=== PATIENT | male | born 1995 | race Caucasian/White ===

== ENCOUNTER 2024-08-05 14:44 | Emergency (ER) | payer OTHER, SELFPAY ==
[2024-08-05 14:52] VITALS: BP 130/84; PULSE 74; RESP 20; TEMP 36.9; O2SAT 100
[2024-08-05 15:24] LABS: EDCOVIDSCREEN Negative (Negative); EDINFLUASCREEN Negative (Negative); EDINFLUBSCREEN Negative (Negative)
--- NOTE | 2024-08-05 15:31 | ED_ITS ---
HPI - URI/Sore Throat General Chief Complaint: Upper Respiratory Infection Stated Complaint: Cough Time Seen by Provider: 08/05/24 15:31 Source: patient Mode of arrival: ambulatory Limitations: no limitations History of Present Illness HPI Narrative: 28-year-old male presents with complaint of cough, chest congestion for the past 1 week. Reports shortness of breath with exertion, worsening of cough for 2-3 days. Afebrile. Reports coughing up brown and green sputum. Taking [id number] Mucinex without relief of cough. Cough is worse at night and with activity. All systems reviewed and negative except as noted above. Related Data Home Medications ?Medication ?Instructions ?Recorded ?Confirmed ?Last Taken ?Type hydroxyzine HCl 50 mg tablet mg 08/05/24 Unknown History Allergies Allergy/AdvReac Type Severity Reaction Status Date / Time No Known Allergies Allergy Verified 08/05/24 15:01 Review of Systems Review of Systems: CONSTITUTIONAL: Denies fever, chills, or sweats. EYES: Denies visual changes, redness, or discharge. ENT: Denies rhinorrhea, congestion, sore throat, or otalgia. CARDIOVASCULAR: Denies chest pain, palpitations, or edema. RESPIRATORY: Reports cough , chest congestion, dyspnea with exertion. GASTROINTESTINAL: Denies abdominal pain, nausea, vomiting, or diarrhea. GENITOURINARY: Denies dysuria or hematuria. SKIN: Denies rash or itching. MUSCULOSKELETAL: Denies back pain, joint pain, or myalgia. NEUROLOGIC: Denies headache, numbness, or weakness. PSYCHIATRIC: Denies anxiety or depression. All other systems reviewed are negative, except as documented in HPI. PMFSH Social History Social History Smoking status: Never smoker Alcohol intake: never Comments At time of signature, agree with nursing past medical, surgical, social and family history. There is no relevant family history pertinent to the presenting complaint. Exam Narrative: GENERAL: This is a well-nourished, well-developed patient, in no apparent distress. HEAD: normocephalic, atraumatic. EYES: PERRL. Sclera clear/white. Vision is grossly intact. EARS: External ears normal, auditory canals clear and without drainage, TMs normal without perforation. Hearing grossly intact. NOSE: External nose normal with no obvious nasal discharge, nares without redness, no rhinorrhea. THROAT: Mucous membranes moist, posterior pharynx clear. NECK: Neck supple, non-tender without lymphadenopathy, masses or thyromegaly. CARDIOVASCULAR: Regular rate and rhythm without murmurs, gallops, or rubs. RESPIRATORY: decreased to bilateral lower lung [place] otherwise clear. Breath sounds equal bilaterally. No wheezes, rales, or rhonchi. SKIN: warm, Dry, intact with no suspicious lesions or rash, good texture and turgor. NEURO: awake, alert, and oriented to person, place and time. There were no obvious focal neurologic abnormalities. EXTREMITIES: No joint tenderness, effusion, or edema noted. Course Course Level of Care: Express Care Visit Vital Signs Vital signs: Vital Signs Temperature 36.9 C 08/05/24 14:52 Pulse Rate 74 08/05/24 14:52 Respiratory Rate 20 08/05/24 14:52 Blood Pressure 130/84 08/05/24 14:52 Pulse Oximetry 100 08/05/24 14:52 Oxygen Delivery Room Air 08/05/24 14:52 Temperature 36.9 C 08/05/24 14:52 Pulse Rate 74 08/05/24 14:52 Respiratory Rate 20 08/05/24 14:52 Blood Pressure 130/84 08/05/24 14:52 Pulse Oximetry 100 08/05/24 14:52 Oxygen Delivery Room Air 08/05/24 14:52 Reviewed MDM - URI/Sore Throat MDM Narrative Medical decision making narrative: negative COVID and influenza test. Will treat patient with antibiotic due to duration of symptoms, exam findings. Patient agrees with plan of care. Patient is alert, nontoxic. Patient is aware of diagnosis, understands and agrees to treatment plan. Ant icipatory guidance given. Patient agrees to follow-up as directed and is aware of reasons to seek care at the emergency department. Portions of this record may have been created with voice recognition software Differential Diagnosis Differential diagnosis: Likely upper respiratory infection, sinusitis, viral infection, bronchitis and influenza Lab Data Labs: Lab Results 08/05/24 Range/Units 15:22 POC Influenza A Ag Negative (Negative) POC Influenza B Ag Negative (Negative) POC SARS CoV-2 Ag Negative (Negative) Discharge Plan Discharge Clinical Impression: Acute bronchitis Qualifiers: Bronchitis organism: unspecified organism Qualified Code(s): J20.9 - Acute bronchitis, unspecified Patient Disposition: Home, Self-Care Condition: Stable Instructions: Antibiotic Form, Acute Bronchitis (ED) Additional Instructions: your COVID and influenza test was negative today. Take medications as prescribed. Continue taking [id number] Mucinex as directed on packaging. Drink at least 64 oz of water a day. Place cool mist humidifier in bedroom where you sleep. Follow-up with your primary care physician if symptoms are not improving. Patient Language: Chinese Prescriptions: New benzonatate 200 mg capsule 200 mg PO TID PRN (Reason: cough) Qty: 20 0RF methylprednisolone [Medrol (Saleem)] 4 mg tablets,dose pack See Rx Instructions PO .COMPLEX Qty: 21 0RF Rx Instructions: orally per package directions doxycycline hyclate 100 mg capsule 100 mg PO BID 7 Days Qty: 14 0RF No Action hydroxyzine HCl 50 mg tablet Follow-up/Referrals: UNKNOWN,DOCTOR [Primary Care Provider] - Time of Disposition: 15:37
--- OUTSIDE RECORDS SUMMARY | 2024-08-05 15:39 | XMS_ITS | Referral Summary ---
Author Organization [facility] Address [address] [place] [address] Care Team Providers Care Editorial Director Name Role Phone Gerson Posey MD Primary Care Provider [phone] Encounters Date Type Department Care Team Description 06/11/2024 Telephone [facility] [address] [address] Kyara Hayden NP from Last 3 Months Allergies No known active allergies Medications hydrOXYzine (ATARAX) 50 mg tabletIndicatio ns:Insomnia Take 1 tablet (50 mg total) by mouth 2 (two) times a day as needed for itching 30 tablet 5 08/08/19 25 Active traZODone (DESYREL) 50 mg tabletIndicatio ns:Primary insomnia Take 1 tablet (50 mg total) by mouth nightly as needed for sleep 90 tablet 5 08/10/19 25 Active traZODone (DESYREL) 50 mg tabletIndicatio ns:Primary insomnia Take 1 tablet (50 mg total) by mouth nightly as needed for sleep 90 tablet 4 07/11/19 25 Discontinu ed(Reorder ) hydrOXYzine (ATARAX) 50 mg tabletIndicatio ns:Insomnia Take 1 tablet (50 mg total) by mouth 2 (two) times a day as needed for itching 30 tablet 12/02/07/09/19 25 Discontinu ed(Reorder ) Active Problems Problem Noted Date Diagnosed Date Primary insomnia 04/15/2024 Assessment & Plan (04/15/2024 2:41 PM CDT): Chronic, not well controlled Has had trouble with insomnia for approx 3-4 years Rotates between 3 OTC sleep aids; currently using Unisom Sometimes OTC helps fall asleep but unable to stay asleep Trazodone 50 mg nightly as needed Follow up 3 months Immunizations Name Administration Dates Next Due HPV, Quadrivalent 04/03/2012,02/01/2012 Influenza, Quadrivalent, Spl it, Preservative Free, Intramuscular 03/29/2018 Influenza, Unspecified 04/15/2024(Deferr ed: Patient Refused),04/02/2023(Deferred: Patient Refused),09/27/2021(Deferred: Patient Refused),09/27/2021(Deferred: Patient Refused),07/15/2020(Deferred: Patient Refused),07/03/2020(Deferred: Patient Refused),07/03/2020(Deferred: Patient Refused),07/03/2019(Deferred: Patient Refused) Meningococcal MCV4P (Menactra) 02/01/2012 Tdap 10/27/2021,03/29/2018 Social History Tobacco Use Types Packs/Day Years Used Date Smoking Tobacco: Some Days Cigarettes Smokeless Tobacco: Current Chew Tobacco Cessation:Ready to Q uit: Yes; Counseling Given: Yes Comments:maybe once per week Alcohol Use Standard Drinks/Week Comments Yes 12 (1 standard drink = 0.6 oz pu re alcohol) PHQ-2 Answer Date Recorded PHQ-2 Total Score (If total score is 3 or more points, staff should administer the PHQ-9) 0 04/15/2024 Sex and Gender Information Value Date Recorded Sex Assigned at Not on file 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 Gender Identity Not on file Sexual Orientation Not on file Last Filed Vital Signs Vital Sign Reading Time Taken Comments Blood Pressure 106/70 04/15/2024 1:56 PM CDT Pulse 59 04/15/2024 1:56 PM CDT Temperature 36.6 ??C (97.8 ??F) 04/15/2024 1:56 PM CD T Respiratory Rate 16 04/15/2024 1:56 PM CDT Oxygen Saturation 99% 04/15/2024 1:56 PM CDT Inhaled Oxygen Concentration - - Weight 76.5 kg (168 lb 11.2 oz) 04/15/2024 1:56 PM CDT Height 167.6 cm (5' 6 ) 04/15/2024 1:56 PM CDT Body Mass Index 27.23 04/15/2024 1:56 PM CDT Plan of Treatment Not on file Procedures Procedure Name Priority Date/Time Associated Diagnosis Comments HEPATITIS C ANTIBODY Routine 04/12/2024 9:26 AM CDT Encounter for hepatitis C screening test for low risk patient from Last 3 Months or Most Recently Relevant to Health Maintenance Results * Hepatitis C antibody Blood (04/12/2024 9:26 AM CDT) Hep C Ab Nonreactive Nonreactive Comment: Interpretive Data Nonreactive: Antibodies to HCV not detected. Does NOT exclude the possibility of recent exposure to HCV. Equivocal: Equivocal for HCV antibodies. Supplemental molecular testing will be automatically performed to determine infection status in accordance with current CDC screening recommendations. ?? Reactive: Positive for HCV antibodies. ??This may represent current or past HCV infection. Supplemental molecular testing will be automatically performed to determine ??current infection status in accordance with current CDC screening recommendations. Interpretive data was last revised on 2019. Testing performed by: [facility], [address] [place] [address]., [id number] Blood 04/12/2024 9:26 AM CDT 04/12/2024 11:53 AM CDT us Kyara Hayden NP LAB MICROBIOLOGY - GENERAL ORDER ERVIN Final Result [facility] [address] [facility] [place] [address] from Last 3 Months or Most Recently Relevant to Health Maintenance Insurance [employer]UE [employer] BLUE ACCESS [employer]OS [facility] CHOICE PLUS Care Teams Editorial Director Relationship Specialty Start Date End Date Gerson Posey MD [address] [place] [address] PCP - General Family Medicine 07/15/20
--- OUTSIDE RECORDS SUMMARY | 2024-08-05 15:40 | XMS_ITS | Clinical Summary ---
Author Organization [facility] Address [address] [place] [address] Care Team Providers Care Software Installer Name Role Phone Gerson Posey MD Primary Care Provider [phone] Allergies No known active allergies Medications hydrOXYzine [...] day as needed for itching 30 tablet 4 07/09/19 25 Discontinu ed(Reorder ) Active Problems Problem Noted Date Diagnosed Date Primary insomnia 04/15/2024 Assessment & Plan (04/15/2024 2:41 PM CDT): Chronic, not well controlled Has had trouble with insomnia for approx 3-4 years Rotates between 3 OTC sleep aids; currently using Unisom Sometimes OTC helps fall asleep but unable to stay asleep Trazodone 50 mg nightly as needed Follow up 3 months Encounters Date Type Department Care Team Description 06/11/2024 [facility]phone [facility] [address] [place] [address] Kyara Hayden NP from Last 3 Months Immunizations Name Administration Dates Next Due HPV, Quadrivalent 04/03/2012,02/01/2012 Influenza, Quadrivalent, Spl it, Preservative Free, Intramuscular 03/29/2018 Influenza, Unspecified 04/15/2024(Deferr ed: Patient Refused),04/02/2023(Deferred: Patient Refused),09/27/2021(Deferred: Patient Refused),09/27/2021(Deferred: Patient Refused),07/15/2020(Deferred: Patient Refused),07/03/2020(Deferred: Patient Refused),07/03/2020(Deferred: Patient Refused),07/03/2019(Deferred: Patient Refused) Meningococcal MCV4P (Menactra) 02/01/2012 Tdap 10/27/2021,03/29/2018 Surgical History Surgery Date Site/Laterality Comments SINUS SURGERY 07/03/1999 - 07/02/2000 FRACTURE SURGERY 07/03/2009 - 07/02/2010 Left left arm, compound fracture x2 Medical History Medical History Date Comments Renal disorder kidney stones Family History Relation Name Status Comments Father Alive Mother Alive Social History Tobacco Use Types Packs/Day Years [...] on file Legal 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 Gender Identity Not on file Sexual Orientation Not on file Obstetrics History Last Filed Vital Signs Vital Sign Reading [...] 04/15/2024 1:56 PM CDT Plan of Treatment Health Maintenance Due Date Last Done Comments Pneumococcal vaccine <65 (1 of 2 - PCV) 2000 Varicella Vaccines (1 of 2 - 13+ 2-dose series) 2007 HPV Vaccines (3 - Male 3-dos e series) 08/03/2012 04/03/2012, 02/01/2012 Influenza Vaccine (#1) 2024 03/29/2018 Postp oned from 03/03/2024 (Patient declined, but will receive in the future) Depression Screening 04/15/2025 04/15/2024, 09/27/2021, 07/15/2020 Regular Well Visit/Exam 18-64 04/15/2025, 07/15/2020 DTaP/Tdap/Td Vaccine (3 - Td or Tdap) 10/28/2031 10/27/2021, 03/29/2018 Hepatitis B Screening Completed 04/12/2024 Hepatitis C Screening Completed 04/12/2024 Procedures Procedure Name Priority Date/Time Associated Diagnosis [...] last revised on 2019. Testing performed by: [facility], [address] [place] [address]., [id number] Blood 04/12/2024 9:26 AM CDT 04/12/2024 11:53 AM CDT us Kyara Hayden NP LAB MICROBIOLOGY - GENERAL ORDER ERVIN Final Result [facility] 1 [facility] Department [place] [address] from Last 3 Months or Most Recently Relevant to Health Maintenance Insurance [employer] BLUE ACCESS OOS [facility] CHOICE PLUS Care Teams Software Installer Relationship Specialty Start Date End Date Gerson Posey MD [address] [place] [address] PCP - General Family Medicine 07/15/20
--- OUTSIDE RECORDS SUMMARY | 2024-08-05 15:40 | XMS_ITS | Clinical Summary ---
Author Organization [facility] Address [address] [place] [address] Phone Care Team Providers Care Supply Chain Assistant Name Role Phone Provider, None Primary Care Provider Unavailabl e Allergies No known active allergies Medications Ibuprofen (ADVIL) 200 MG Capsule Take 600 mg by mouth. Alternating with Hydrocodone as needed. Active HYDROcodone-candy taminophen (NORCO) 5-325 MG Tablet Take 1 Tab by mouth every 4 hours as needed. 0 8 Active ondansetron (ZOFRAN) 4 MG Tablet TAKE 1 TABLET(S) EVERY 6-8 HOURS BY ORAL ROUTE NEEDED FOR 10 DAYS. 0 8 Active tamsulosin (FLOMAX) 0.4 MG Capsule TAKE 1 CAPSULE BY MOUTH EVERYDAY AT BEDTIME 0 8 Active Active Problems No known active problems Family History Medical History Relation Name Comments Hypertension Father Kidney Stones Mother Heart Attack Paternal Grandfather Kidney Stones Sister Relation Name Status Comments Father Alive Mother Alive Paternal Grandfather Sister Social History Tobacco Use Types Packs/Day Years Used Date Smoking Tobacco: Former Smokeless Tobacco: Former Chew Quit: 04/25/2018 Tobacco Cessation:Ready to Q uit: Yes; Counseling Given: Yes Alcohol Use Standard Drinks/Week Comments Yes 6 (1 standard drink = 0.6 oz pure alcohol) not much, maybe six beers a week Sexually Active Control Partners Comments Yes Female Sex and Gender Information Value Date Recorded Sex Assigned at Not on file Legal Sex Male 10:39 PM CDT Gender Identity Not on file Sexual Orientation Not on file Last Filed Vital Signs Vital Sign Reading Time Taken Comments Blood Pressure 128/74 07/31/2020 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 Pulse 81 07/31/2020 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 Temperature 36.7 ??C (98 ??F) 07/31/2020 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 Respiratory Rate 18 06/01/2018 10:42 AM FARM PRODUCT PURCHASER Oxygen Saturation 98% 07/31/2020 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 Inhaled Oxygen Concentration - - Weight 77.1 kg (170 lb) 05/30/2018 3:00 PM FARM [employer]ODUCT PURCH[employer]ER Height 167.6 cm (5' 6 ) 05/30/2018 3:00 PM FARM PRODUCT PURCHASER Body Mass Index 27.44 05/30/2018 3:00 PM FARM PRODUCT PURCHASER Plan of Treatment Health Maintenance Due Date Last Done Comments Hepatitis C Virus (HCV) Screening 1994 Hepatitis B Immunization (1 of 3 - 19+ 3-dose series) 2013 Influenza Immunization (#1) 2024 03/29/2018 SARS-COV-2 Immunization (3 - 2023- season) 2024 06/10/2021, 09/08/2020 Respiratory Syncytial Virus (RSV) Immunization (Adult) (1 - 1-dose 75+ series) 2069 DTaP/Tdap/Td Immunization Discontinued 03/29/2018 TdaP Immunization Completed 03/29/2018 Meningococcal Immunization (ACWY) Aged Out No longer eligible based on patient's age to complete this topic Pneumococcal Immunization Combined Aged Out No longer eligible based on patient's age to complete this topic Rotavirus Immunization Aged Out No lo nger eligible based on patient's age to complete this topic Insurance [facility] Care Teams Supply Chain Assistant Relationship Specialty Start Date End Date Provider, None [place] PCP - General 05/30/18
== END 2024-08-05 15:40 | disposition home or self-care (01) ==
PROVIDERS: Emergency Provider Nurse Practitioner Family
DX: J20.9 Acute bronchitis, unspecified (principal); Z20.822 Contact with and (suspected) exposure to COVID-19
CPT/HCPCS: 87426; 87804; 99203; G0463